=== PATIENT | female | born 1995 | race Caucasian/White ===

== ENCOUNTER 2025-04-09 07:44 | Inpatient (IN) ==
[2025-04-09] MEDS ORDERED: CALCIUM CARBONATE 500 MG CHEWABLE TAB PO PRN (08:25)
[2025-04-09] MEDS ORDERED: LIDOCAINE 1% LOCAL 20 ML VIAL INFIL PRN (08:25)
[2025-04-09] MEDS ORDERED: ACETAMINOPHEN 325 MG TAB PO PRN (08:25)
[2025-04-09] MEDS: miSOPROStoL 50 MCG TAB PO ONE ×2 (08:47→14:06)
[2025-04-09 09:00] LABS: Hematocrit (blood only) 38.2 % (37.0-47.0); Hemoglobin 12.7 g/dl (12.0-16.0); Mean Corpuscular Hemoglobin 27.9 pg (25.0-34.0); Mean Corpuscular Volume 83.8 fL (80.0-100.0); Platelet Count 185 K/uL (130-400); RDW Standard Deviation 41.9 fL (36.4-46.3); Red Blood Count 4.56 M/uL (4.20-5.40); White Blood Count 9.90 K/ul (4.8-10.8)
[2025-04-09] MEDS: LACTATED RINGER'S 1,000 ML IV PRN (17:05)
[2025-04-09] MEDS: BUTORPHANOL TARTRATE 1 MG/ML VIAL IV PRN (17:35)
[2025-04-09] MEDS: ONDANSETRON INJ 2 MG/ML 2 ML VIAL IV PRN (17:55)
[2025-04-09] MEDS: OXYTOCIN 30 UNITS/NSS 30 UNITS/500 ML BAG IV PRN (19:18)
[2025-04-09] MEDS ORDERED: NALOXONE HCL 1 MG in SODIUM CHLORIDE 0.9% 1,000 ML IV PRN (19:49)
[2025-04-09] MEDS ORDERED: BUPIVACAINE 0.25% PF 30 ML VIAL EPI PRN (19:49)
[2025-04-09] MEDS ORDERED: NALBUPHINE HCL INJ 10 MG/ML AMP IV PRN (19:49)
[2025-04-09] MEDS ORDERED: ROPIVACAINE 0.5% PF 5 MG/ML 20 ML VIAL EPI PRN (19:49)
[2025-04-09] MEDS ORDERED: SODIUM CHLORIDE 0.9% PF INJ 10 ML VIAL EPI PRN (19:49)
[2025-04-09] MEDS ORDERED: NALOXONE HCL 0.4 MG/1 ML VIAL/CARP IV PRN (19:49)
[2025-04-09] MEDS ORDERED: LIDOCAINE 2% MPF LOCAL 5 ML VIAL EPI PRN (19:49)
[2025-04-09] MEDS ORDERED: ONDANSETRON INJ 2 MG/ML 2 ML VIAL IV PRN (19:49)
[2025-04-09] MEDS ORDERED: diphenhydrAMINE 50 MG/ML VIAL IV PRN (19:49)
--- NOTE | 2025-04-09 19:49 | Anesthesiology Consultation ---
Date of Service April 09, 2025 Assessment & Plan ASA ASA2 Proposed Anesthesia Anesthesia Type: Labor Epidural Risk / Benefits Reviewed With: PT / POA / Parent / Guardian, Accepts Plan and Informed Consent Obtained History Height/Weight Height: 5 ft 6 in Weight: 103.9 kg Allergies Allergy/AdvReac Type Severity Reaction Status Date / Time cinnamon Allergy Mild Hives Verified 04/09/25 18:01 Medications Home Medications Medication Instructions Recorded Confirmed Last Taken ondansetron HCl 4 mg tablet 4 mg PO DAILY PRN Nausea And 04/09/25 04/09/25 Unknown Vomiting [id number] 1 mg 1 tab PO DAILY 04/09/25 04/09/25 1 Day Ago tablet ~04/08/25 Active Medications Generic Name Dose Route Start Last Admin Trade Name Freq PRN Reason Stop Dose Admin Butorphanol Tartrate 1 mg 04/09/25 17:20 04/09/25 17:35 Butorphanol Tartrate 1 Mg/Ml Vial IV 04/09/25 23:59 1 mg Q30M PRN Administration Pain Fentanyl/Bupivacaine/Sodium Chlor 100 ml 04/09/25 19:49 04/09/25 20:22 Fentanyl 2 Mcg/Ml Bupivacaine 0.125%-Nss 100ml Bag EPI 04/10/25 19:48 100 ml PRN PRN Administration Pain R/T Labor Protocol Lactated Ringer's 1,000 mls @ 125 mls/hr 04/09/25 08:25 04/09/25 20:16 Lr IV 04/11/25 08:24 125 mls/hr .Q8H PRN Infusion L&D Protocol Protocol Oxytocin 30 units in 500 mls @ 4 mls/hr 04/09/25 19:05 04/09/25 19:50 Pitocin 30 Units/Nss IV 04/12/25 19:04 0.24 units/hr .Q24H PRN 4 mls/hr Labor Induction/Augmentation Titration Protocol 0.24 UNITS/HR Ondansetron HCl 4 mg 04/09/25 17:43 04/09/25 17:55 Ondansetron Inj 2 Mg/Ml 2 Ml Vial IV 05/09/25 17:42 4 mg Q4H PRN Administration Nausea Past Medical History Medical History No known health problems No pertinent past medical history Exercise / Class Metabolic Activity II 4-5 Yardwork/Stairs/Walk up hill Past Family History Family History Father Hypertension Past Surgical History Surgical History History of tonsillectomy History of adenoidectomy Past Anesthesia History No Hx of Anesthesia Complications and No Family Hx of Anesthesia Complications History of PONV No Hx of PONV and No Hx of Motion Sickness Social History Smoking Status: Former smoker Do You Dip or Chew Tobacco: No Hx Alcohol Use: No Hx Substance Use: No substance use type: does not use Review of Systems denies fever/cough/ colds/ chest pain/ SOB/ AUGUST denies AUGUST Physical Exam Vital Signs Last Vital Signs Temp 36.7 C 04/09/25 18:55 Pulse 98 H 04/09/25 20:27 Resp 20 04/09/25 18:55 BP 133/64 04/09/25 20:24 Pulse Ox 97 04/09/25 20:27 ENMT Mouth: no TMJ abnormality and no dentition abnormality Thyromental Distance: > or= 3.5 Finger Breadths Mallampati Class: II Neck neck extension not limited Respiratory normal respiratory effort; no respiratory distress Auscultation: lungs clear to auscultation bilaterally Cardiovascular Rate/Rhythm: regular rate and regular rhythm Neurologic moves all extremities Psychiatric Orientation: alert and oriented x 3 Testing Laboratory Results 04/09/25 08:38 Blood Type O Positive 04/09/25 08:38 Antibody Screen NEGATIVE 04/09/25 08:38
[2025-04-09] MEDS: fentANYL 2 MCG/ML BUPIVacaine 0.125%-NSS 100ML BAG EPI PRN (20:22)
[2025-04-09] MEDS: LIDOCAINE 2%/EPINEPHRINE 1:200,000 20 ML PF EPI STA (20:22)
[2025-04-09] MEDS: BUPIVACAINE 0.25% PF 30 ML VIAL EPI STA (20:22)
[2025-04-09] MEDS: fentANYL 2 MCG/ML BUPIVacaine 0.125%-NSS 100ML BAG ONE (20:31)
[2025-04-09] MEDS: BUPIVACAINE 0.25% PF 30 ML VIAL ONE (20:31)
[2025-04-09] MEDS: LIDOCAINE 2%/EPINEPHRINE 1:200,000 20 ML PF ONE (20:31)
[2025-04-09] MEDS: SODIUM CHLORIDE 0.9% PF INJ 10 ML VIAL ONE (20:32)
[2025-04-09] MEDS: SODIUM CHLORIDE 0.9% PF INJ 10 ML VIAL EPI STA (20:32)
[2025-04-10] MEDS: METHYLERGONOVINE MALEATE 0.2 MG/ML AMP IM ONE (01:10)
[2025-04-10] MEDS ORDERED: ACETAMINOPHEN W/CODEINE #3 1 TAB PO PRN (01:22)
[2025-04-10] MEDS ORDERED: HYDROCORTISONE ACETATE 25 MG SUPP PR PRN (01:22)
[2025-04-10] MEDS ORDERED: OXYTOCIN 30 UNITS/NSS 30 UNITS/500 ML BAG IV PRN (01:22)
--- NOTE | 2025-04-10 01:26 | Delivery Summary ---
Vaginal Delivery Summary Date of Service April 10, 2025 Vaginal Delivery Summary Patient's been followed in the office for care and delivery. Patient is well dated with first trimester ultrasound. Patient's had no problems. Patient is brought in for induction at 40 weeks and 5 days gestation. He was placed on a monitor had a good reactive NST was given p.o. Cytotec 50 mcg. About 6 hours later she was given a second dose. With that she went into active labor. At about 6 cm she received epidural for pain control. Before that she received several doses of IV Stadol. IV Pitocin was used to create good regular contractions after the epidural. She had a good rate of descent and good rate of cervical dilatation. Pushed out a live female via direct occiput anterior position over an intact perineum. Infant was suctioned through the mouth and the nose prior to delivery. Infant was delivered without difficulty. Cord was allowed to pulse for 1 full minute then was stripped and cut by the father. Apgars refer deferred to the nurses. Quantitative blood loss was 55 mL. There were 2 small lacerations at the vaginal introitus. 1 at 5:00 which required a [id number] suture of 3-0 chromic and then 1 at 7:00 which required a running 3-0 chromic. Both these lacerations were superficial. Quantitative blood loss was 55 mL. Patient tolerated delivery well.
[2025-04-10] MEDS: OXYTOCIN 30 UNITS/NSS 30 UNITS/500 ML BAG IV PRN (01:49)
[2025-04-10] MEDS: DIPHTHER/TETAN/PERTUS Vaccine (Tdap, Adol/Adult) 0.5mL IM ONE (01:56)
[2025-04-10] MEDS: BENZOCAINE 20% SPRY 85 APPLN/85 GM CAN EXT PRN (03:16)
--- NOTE | 2025-04-10 07:30 | Anesthesia Procedure Note ---
Date of Service April 10, 2025 Anesthesia Post Epidural Note Vital Signs Vital Signs: Temp Pulse Resp BP Pulse Ox O2 Del Method 36.9 C 100 H 18 122/81 96 Room Air 04/10/25 03:45 04/10/25 03:45 04/10/25 03:45 04/10/25 03:45 04/10/25 03:45 04/10/25 03:45 Notes Mental Status: alert / awake / arousable and participated in evaluation Nausea / Vomiting: adequately controlled Pain: adequately controlled Airway Patency, RR, SpO2: stable & adequate BP & HR: stable & adequate Hydration State: stable & adequate Neuraxial Anesthesia: was administered and sensory block is resolving Anesthetic Complications: no major complications apparent Epidural: Removed without complications and With tip intact
[2025-04-10] MEDS: DOCUSATE SODIUM 100 MG CAP PO SCH (07:36)
[2025-04-10] MEDS: PRENATAL VITAMIN 1 TAB PO SCH (07:36)
[2025-04-10] MEDS: IBUPROFEN 600 MG TAB PO PRN (07:36)
[2025-04-10] MEDS: ACETAMINOPHEN 325 MG TAB PO PRN (12:46)
[2025-04-11 01:45] VITALS: O2SAT 97
[2025-04-11 06:45] LABS: Hematocrit (blood only) 33.4 % (37.0-47.0); Hemoglobin 10.9 g/dl (12.0-16.0); Mean Corpuscular Hemoglobin 27.9 pg (25.0-34.0); Mean Corpuscular Volume 85.4 fL (80.0-100.0); Platelet Count 163 K/uL (130-400); RDW Standard Deviation 44.6 fL (36.4-46.3); Red Blood Count 3.91 M/uL (4.20-5.40); White Blood Count 8.97 K/ul (4.8-10.8)
[2025-04-11 08:04] VITALS: BP 122/80; PULSE 87; RESP 14; TEMP 97.7
--- NOTE | 2025-04-11 10:01 | Obstetrical Progress Note ---
Date of Service April 11, 2025 Assessment & Plan (1) Post-dates , delivered, current hospitalization: discharged home Subjective Ambulation: ambulating normally Passing Gas:: Yes Diet Tolerance:: regular diet Lochia:: Small Feeding Type:: breast feeding Current Pain Level(1-10): 0 doing well. plans for discharge today. Physical Exam Constitutional WD/WN, vitals as above Gastrointestinal (Abdomen) Inspection/Auscultation: abdomen normal to inspection abdomen soft and non-tender. fundus firm below U. Musculoskeletal Extremities: extremities normal to inspection Skin no rashes, warm and dry Neurologic patellar DTR's 2+ bilat, sensation intact Psychiatric A+Ox3, euthymic affect Results & Data Vital Signs (Past 12 Hours) Vital Signs Temp Pulse Resp BP Pulse Ox O2 Del Method 04/11/25 08:01 36.5 C 87 14 122/80 Room Air 04/11/25 00:35 36.7 C 94 H 18 123/82 97 Room Air Laboratory Results Laboratory Results - last 72 hr 04/09/25 04/11/25 08:38 06:09 WBC 9.90 8.97 RBC 4.56 3.91 L Hgb 12.7 10.9 L Hct 38.2 33.4 L MCV 83.8 85.4 MCH 27.9 27.9 MCHC 33.2 32.6 RDW Std Deviation 41.9 44.6 RDW Coeff of Giuliana 14.0 14.5 Plt Count 185 163 MPV 11.0 10.8 Treponema pallidum Ab Negative Blood Type O Positive Antibody Screen NEGATIVE
== END 2025-04-11 12:38 | disposition home or self-care (01) | DRG 807 ==
LOC: 4S1 07:44 → 4E2 04-10 03:42